=== PATIENT | female | born 1965 | race Caucasian/White ===

== ENCOUNTER → 2017-05-31 | Outpatient (CLI) | payer BC | END | disposition home or self-care (01) | LOC: LAB 08:30 | DX: E03.9 Hypothyroidism, unspecified (principal); R53.83 Other fatigue; N95.9 Unspecified menopausal and perimenopausal disorder; K90.41 Non-celiac gluten sensitivity; Z91.011 Allergy to milk products ==

== ENCOUNTER → 2017-08-23 | Outpatient (CLI) | payer BC ==
[2017-08-23 09:01] LABS: FREE T4 1.04 ng/dl (0.76-1.46)
[2017-08-23 09:06] LABS: THYROID STIM HORMONE (HS) 1.32 uIU/ml (0.358-4.75)
[2017-08-24 08:12] LABS: DHEA SULFATE 77.7 ug/dL (41.2-243.7); ESTRADIOL <5.0 pg/mL (.); FREE T3 010389 2.8 pg/mL (2.0-4.4); PROGESTERONE 004317 <0.1 ng/mL (.)
[2017-08-24 19:05] LABS: TESTOSTERONE FREE, (DIRECT) 2.1 pg/mL (0.0-4.2)
== END | disposition home or self-care (01) ==
LOC: LAB 07:49
PROVIDERS: Nurse Practitioner
DX: E03.9 Hypothyroidism, unspecified (principal); E53.9 Vitamin B deficiency, unspecified; N95.9 Unspecified menopausal and perimenopausal disorder

== ENCOUNTER → 2017-12-07 | Outpatient (CLI) | payer BC ==
[2017-12-07 09:28] LABS: FREE T4 1.16 ng/dl (0.76-1.46)
[2017-12-07 09:34] LABS: THYROID STIM HORMONE (HS) 1.39 uIU/ml (0.358-4.75)
[2017-12-08 05:03] LABS: FREE T3 010389 3.1 pg/mL (2.0-4.4)
[2017-12-08 06:08] LABS: DHEA SULFATE 71.7 ug/dL (41.2-243.7); ESTRADIOL 8.6 pg/mL (.); PROGESTERONE 004317 0.4 ng/mL (.)
[2017-12-09 00:07] LABS: TESTOSTERONE FREE, (DIRECT) 2.1 pg/mL (0.0-4.2)
[2017-12-10 17:08] LABS: T3 REVERSE 070104 22.1 ng/dL (9.2-24.1)
== END | disposition home or self-care (01) ==
LOC: LAB 08:20
PROVIDERS: Nurse Practitioner
DX: E03.9 Hypothyroidism, unspecified (principal); N95.9 Unspecified menopausal and perimenopausal disorder; E34.9 Endocrine disorder, unspecified

== ENCOUNTER → 2023-07-10 | Outpatient (CLI) | payer OTHER ==
[2023-07-10 07:59] LABS: BASO # 0.1 10*3/uL (0.0-0.1); BASO % 0.6 % (0.0-1.0); EOS # 0.1 10*3/uL (0.0-0.4); EOS % 0.8 % (1.0-4.0); HEMATOCRIT 43.9 % (37.0-47.0); LYMPH # 2.8 10*3/uL (1.3-4.4); LYMPH % 36.5 % (27.0-41.0); MEAN CORPUSCULAR HGB 29.7 pg (27.0-31.0); MEAN CORPUSCULAR HGB CONC 33.7 g/dl (33.0-37.0); MEAN PLATELET VOLUME 10.2 fl (9.6-12.3); MONO # 0.4 10*3/uL (0.1-1.0); MONO % 4.7 % (3.0-9.0); NEUT # 4.4 10*3/uL (2.3-7.9); NEUT % 57.1 % (47.0-73.0); PLATELET COUNT AUTOMATED 332 10*3/uL (130-400); RED BLOOD COUNT 4.99 10*6/uL (4.10-5.10); RED CELL DISTRI WIDTH 12.5 % (0-14.5); WHITE BLOOD COUNT 7.7 10*3/uL (4.8-10.8)
[2023-07-10 08:52] LABS: ALKALINE PHOSPHATASE 119 U/L (46-116); BUN 15 mg/dl (9-23); CHLORIDE 106 mmol/L (98-107); CHOLESTEROL 186 mg/dL (<200); FREE T4 0.88 ng/dl (0.89-1.76); LDL CHOLESTEROL 107 mg/dL (9-159); POTASSIUM 4.2 mmol/L (3.4-5.1); SGPT/ALT 12 U/L (5-49); TOTAL PROTEIN 6.9 gm/dL (6.0-8.0); TRIGLYCERIDES 94 mg/dl (<150)
[2023-07-11 04:04] LABS: DHEA SULFATE 81.3 ug/dL (29.4-220.5); THYROID PEROXIDASE (TPO) AB <9 IU/mL (0-34)
[2023-07-11 15:05] LABS: THYROGLOBULIN ANTIBODY <1.0 IU/mL (0.0-0.9)
[2023-07-12 06:07] LABS: ESTRIOL (E3) <0.1 ng/mL (.)
[2023-07-13 09:05] LABS: ESTRONE, SERUM 12 pg/mL (.)
[2023-07-13 20:05] LABS: TESTOSTERONE FREE, (DIRECT) 0.8 pg/mL (0.0-4.2)
[2023-07-16 05:03] LABS: 25-HYDROXY, VITAMIN D 36 ng/mL (.); 25-HYDROXY, VITAMIN D-2 <1.0 ng/mL (.); 25-HYDROXY, VITAMIN D-3 35 ng/mL (.)
== END | disposition home or self-care (01) ==
LOC: LAB 07:26
PROVIDERS: ATTEND Physician Assistant Medical
DX: Z13.228 Encounter for screening for other metabolic disorders (principal); Z13.29 Encounter for screening for other suspected endocrine disorder; Z13.21 Encounter for screening for nutritional disorder; K21.9 Gastro-esophageal reflux disease without esophagitis; E03.9 Hypothyroidism, unspecified; K58.9 Irritable bowel syndrome, unspecified; N95.1 Menopausal and female climacteric states; E27.9 Disorder of adrenal gland, unspecified; R53.83 Other fatigue; E34.9 Endocrine disorder, unspecified; R68.89 Other general symptoms and signs; L65.9 Nonscarring hair loss, unspecified; N91.2 Amenorrhea, unspecified; E53.8 Deficiency of other specified B group vitamins; E78.2 Mixed hyperlipidemia; E55.9 Vitamin D deficiency, unspecified